=== PATIENT | female | born 1960 | race Caucasian/White ===

== ENCOUNTER 2021-01-26 16:21 | Emergency (ER) | payer OTHER, MEDICAID, SELFPAY ==
[~2021-01-26] VITALS: Ht 175.3 cm; Wt 108.9 kg
[2021-01-26 16:40] VITALS: BP_SYST 124
--- NOTE | 2021-01-26 16:40 | NUR ---
Patient to [facility] for evaluation. Side rails up.
--- NOTE | 2021-01-26 16:45 | NUR ---
LAB AT BEDSIDE FOR BLOOD DRAW.
--- NOTE | 2021-01-26 17:00 | NUR ---
ER Dr. ARDON at bedside examining patient.
--- NOTE | 2021-01-26 17:01 | NUR ---
PATIENT BIB BLS FROM [facility] FOR MEDICAL CLEARANCE PRIOR TO TRANSFER TO [facility] ROOM 52A. PATIENT EXPERIENCING INCREASED DELUSIONS, VERBALLY AGGRESSIVE, AND RESISTIVE TO CARE. PATIENT RESTING COMFORTABLY ON AMBULANCE GURNEY. PATIENT DENIES MEDICAL COMPLAINTS. WILL CONTINUE TO MONITOR.
--- NOTE | 2021-01-26 17:05 | NUR ---
COVID RAPID SWAB AND FLU SWAB PERFORMED AT BEDSIDE. SAMPLE SENT TO LAB
--- NOTE | 2021-01-26 17:06 | NUR ---
PER DR. ARDON, URINE NOT NEEDED.
[2021-01-26 17:25] LABS: BASOPHILS # (AUTO) 0.1 K/uL (0.0-0.2); BASOPHILS % (AUTO) 0.6 % (0.0-2.0); EOSINOPHILS # (AUTO) 0.3 K/uL (0.0-0.4); EOSINOPHILS % (AUTO) 3.2 % (0.0-4.0); HEMATOCRIT 40.2 % (36-48); HEMOGLOBIN 13.4 g/dL (12.0-16.0); LYMPHOCYTES % (AUTO) 41.5 % (20.5-51.5); MEAN CORPUSCULAR HEMOGLOBIN 29 pg (27-31); MEAN CORPUSCULAR HGB CONC 33 % (32-36); MEAN CORPUSCULAR VOLUME 87 fL (79.0-98.0); MONOCYTES # (AUTO) 0.9 K/uL (0.0-1.0); MONOCYTES % (AUTO) 9.2 % (1.7-9.3); NEUTROPHILS # (AUTO) 4.4 K/uL (1.8-7.7); NEUTROPHILS % (AUTO) 45.5 % (40.0-70.0); PLATELET COUNT (AUTO) 234 K/uL (130-430); RED BLOOD CELL COUNT(AUTO) 4.65 MIL/uL (4.2-6.2); WHITE BLOOD COUNT (AUTO) 9.6 K/uL (4.8-10.8)
[2021-01-26 17:48] LABS: CHOLESTEROL 128 mg/dL (<200); HDL CHOLESTEROL 49 mg/dL (>55); LDL CHOLESTEROL 62 mg/dL (<100)
[2021-01-26 18:01] LABS: ANION GAP 11 (5-15); CHLORIDE 105 mmol/L (98-107); GLUCOSE 87 mg/dL (70-99); SODIUM SERUM 143 mmol/L (136-145)
[2021-01-26 18:02] LABS: ALANINE AMINOTRANSFERASE 19 U/L (12-78); ALBUMIN 3.4 g/dL (3.4-4.8); ASPARTATE AMINOTRANSFERASE 14 U/L (10-37); CALCIUM 8.9 mg/dL (8.4-11.0); CREATININE 0.78 mg/dL (0.55-1.30); GFR AFRICAN AMERICAN 96 mL/min (>90); TOTAL BILIRUBIN 0.2 mg/dL (0.0-1.0); UREA NITROGEN, BLOOD 13 mg/dL (8-21)
[2021-01-26 18:03] LABS: ACETAMINOPHEN < 1 ug/mL (1-30); ALCOHOL, BLOOD < 3 mg/dL (<10); TRIGLYCERIDES 112 mg/dL (30-150)
--- NOTE | 2021-01-26 18:30 | NUR ---
REPORT CALLED TO CHIKA FORD AT [facility] PRIOR TO TRANSFER.
[2021-01-26 18:31] VITALS: BP_SYST 133
--- NOTE | 2021-01-26 18:32 | NUR ---
Patient to be transferred to [place] [id number]. Is being transferred due to higher level of care. Receiving facility has accepting physician and available space. ER physician has signed transfer form. Patient or responsible constitution party has agreed to transfer and signed form. Patient belongings inventoried and will be sent with patient. Copy of nursing notes, lab reports, EKG, Physicians Orders and X-rays to be sent with patient. Report called to CHIKA FORD at receiving facility. Receiving physician is DEVIN. [facility] ambulance service has been called for transfer. ETA is NOW.
--- NOTE | 2021-01-26 18:33 | NUR ---
REPORT GIVEN TO [facility] PRIOR TO TRANSFER.
== END 2021-01-26 18:31 ==
LOC: SED 16:21
DX: R45.6 Violent behavior (principal); F20.9 Schizophrenia, unspecified; E11.9 Type 2 diabetes mellitus without complications; K21.9 Gastro-esophageal reflux disease without esophagitis; Z88.0 Allergy status to penicillin; Z88.8 Allergy status to other drugs, medicaments and biological substances; Z91.013 Allergy to seafood; Z20.822 Contact with and (suspected) exposure to COVID-19
CPT/HCPCS: 36415; 80053; 80061; 83036; 85025; 87081; 87426; 99285; G0480; G0481; G0482